=== PATIENT | male | born 1970 | race Caucasian/White ===

== ENCOUNTER 2016-11-20 20:52 | Emergency (ER) | payer SELFPAY ==
[~2016-11-20] VITALS: Ht 185.4 cm; Wt 104.0 kg
[~2016-11-20 20:52] MED LIST: IBUP600 PO; LORTA5 PO
[2016-11-20 20:57] VITALS: BP 160/100; PULSE 177; PULSE 77; RESP 22; TEMP 98.2; O2SAT 100
--- NOTE | 2016-11-20 21:13 | PD ---
HPI . fall from 8-10 ft roof Chief Complaint: Fall Time Seen by Provider: 21:00 Travel History International Travel<30 days: No Contact w/Intl Traveler<30days: No Traveled to known affect area: No History of Present Illness HPI 46-year-old male with no significant past medical history here via ambulance secondary fall from a roof approximately 8-10 feet high. Patient tells me that he was working on an addition on his house when he accidentally stepped on a part of the roof that was unstable and fell through. He reports that he initially fell to the ground hitting the back of his head and his left shoulder , which broke his fall. He thinks that he broke his clavicle. He reports 10 out of 10 pain in the left clavicle and approximately 8 out of 10 pain in the back of the head. There is no pain radiating elsewhere. He denies any pain in his neck, entire spine, hips and lower extremities. There was no LOC. He did not have any period of confusion, and this was witnessed by family. He did not experience any incontinence. In transport he was given 10 mg of morphine. Vital signs were stable. PFSH Past Surgical History Appendectomy: Yes Other Surgery: Yes (face) Social History Alcohol Use: No (social) Tobacco Use: Yes (5-6 cig per day) Substance Use: Yes (weed, social cocaine) Allergies-Medications (Allergen,Severity, Reaction): Coded Allergies: Amoxicillin (Verified Allergy, Severe, 09/14/15) N/V Contrast Media (Verified Allergy, Severe, 09/14/15) HIVES Percocet (Verified Allergy, Severe, 09/14/15) N/V Codeine (Verified Allergy, Intermediate, 11/20/16) Reported Meds & Prescriptions Reported Meds & Active Scripts Active Tramadol (Tramadol HCl) 50 Mg Tab 50 Mg PO Q6H PRN Review of Systems General / Constitutional: No: Fever Eyes: No: Visual changes HENT: No: Headaches Cardiovascular: No: Chest Pain or Discomfort Respiratory: No: Shortness of Breath Gastrointestinal: No: Abdominal Pain Genitourinary: No: Dysuria Musculoskeletal: Positive: Pain (left shoulder) Skin: Positive Other (laceration to the back of the scalp), No Rash Neurologic: Positive: Other (pain in the back of the hand), No: Weakness Psychiatric: No: Depression Endocrine: No: Polydipsia Hematologic/Lymphatic: No: Easy Bruising Physical Exam Narrative GENERAL: AAO x 3, mild distress, Well-nourished, well-developed patient. SKIN: Warm and dry. No visible rashes or bruising. Small laceration to the occiput of the scalp HEAD: Normocephalic and atraumatic. EYES: No scleral icterus. No injection or drainage. EOM intact, PERRLA ENT: No nasal drainage noted. Mucous membranes pink. Airway patent. NECK: Supple, trachea midline. No JVD. No spinal process tenderness. C-collar in place CARDIOVASCULAR: Regular rate and rhythm without murmurs, gallops, or rubs. RESPIRATORY: Breath sounds equal bilaterally. No accessory muscle use. No rhonchi or rales. GASTROINTESTINAL: Abdomen soft, non-tender, nondistended. No rebound or guarding. EXTREMITIES: No cyanosis or edema. Tenderness over the left clavicle and upper extremity, no pain in the right upper extremity or lower extremities bilaterally. BACK: Nontender without obvious deformity. No CVA tenderness. NEURO: CN II-12 intact, elevator tender strength normal b/l hand, LE 5/5, no focal deficits PSYCH: AAO x 3, normal affect. Data Data Last Documented VS Vital Signs Date Time Temp Pulse Resp B/P Pulse Ox O2 Delivery O2 Flow Rate FiO2 11/20/16 21:23 100 Room Air 11/20/16 20:57 98.2 77 22 160/100 Orders Complete Blood Count With Diff (11/20/16 21:13) Comprehensive Metabolic Panel (11/20/16 21:13) Prothrombin Time / Inr (Pt) (11/20/16 21:13) Act Partial Throm Time (Ptt) (11/20/16 21:13) Ct Brain W/O Iv Contrast(Rout) (11/20/16 21:13) Ecg Monitoring (11/20/16 21:13) Iv Access Insert/Monitor (11/20/16 21:13) Oximetry (11/20/16 21:13) Sodium Chloride 0.9% Flush (Ns Flush) (11/20/16 21:15) Chest, Single Ap (11/20/16 ) Ct Cerv Spine W/O Contrast (11/20/16 21:13) Morphine Inj (Morphine Inj) (11/20/16 21:30) Ondansetron Inj (Zofran Inj) (11/20/16 21:30) Sodium Chlor 0.9% 1000 Ml Inj (Ns 1000 M (11/20/16 21:30) Bywz-Xoh-Zogood (Booster) Inj (Boostrix (11/20/16 21:30) Clindamycin Inj (Cleocin Inj) (11/20/16 21:30) Shoulder, Limited(2vws) (11/20/16 21:13) Pelvis, Ap Only (Routine) (11/20/16 21:37) Lidocai-Epi 1%-1:100,000 Inj (Xylocaine- (11/20/16 22:45) Sling And Swathe (11/20/16 ) Mandatory Outpatient Referral (11/20/16 23:00) [facility] (11/20/16 ) Labs Laboratory Tests Test 11/20/16 21:26 White Blood Count 10.0 TH/MM3 Red Blood Count 4.66 MIL/MM3 Hemoglobin 13.9 GM/DL Hematocrit 40.9 % Mean Corpuscular Volume 87.7 FL Mean Corpuscular Hemoglobin 29.7 PG Mean Corpuscular Hemoglobin 33.9 % Concent Red Cell Distribution Width 12.2 % Platelet Count 242 TH/MM3 Mean Platelet Volume 7.8 FL Neutrophils (%) (Auto) 69.4 % Lymphocytes (%) (Auto) 21.7 % Monocytes (%) (Auto) 7.1 % Eosinophils (%) (Auto) 1.4 % Basophils (%) (Auto) 0.4 % Neutrophils # (Auto) 6.9 TH/MM3 Lymphocytes # (Auto) 2.2 TH/MM3 Monocytes # (Auto) 0.7 TH/MM3 Eosinophils # (Auto) 0.1 TH/MM3 Basophils # (Auto) 0.0 TH/MM3 CBC Comment DIFF FINAL Differential Comment Prothrombin Time 11.2 SEC Prothromb Time International 1.0 RATIO Ratio Activated Partial 27.8 SEC Thromboplast Time Sodium Level 139 MEQ/L Potassium Level 4.0 MEQ/L Chloride Level 107 MEQ/L Carbon Dioxide Level 26.4 MEQ/L Anion Gap 6 MEQ/L Blood Urea Nitrogen 20 MG/DL Creatinine 1.07 MG/DL Estimat Glomerular Filtration 75 ML/MIN Rate Random Glucose 85 MG/DL Calcium Level 8.0 MG/DL Total Bilirubin 0.4 MG/DL Aspartate Amino Transf 22 U/L (AST/SGOT) Alanine Aminotransferase 36 U/L (ALT/SGPT) Alkaline Phosphatase 78 U/L Total Protein 6.3 GM/DL Albumin 3.4 GM/DL MDM Medical Decision Making Medical Screen Exam Complete: Yes Emergency Medical Condition: Yes Medical Record Reviewed: Yes Differential Diagnosis Slip and fall, closed head injury, scalp laceration, C-spine fracture, clavicle fracture, AC joint separation Narrative Course 46-year-old male here with a fall from the roof of his house. On examination patient does appear to have possible deformity of the left clavicle/shoulder. He has a small laceration to the back of his scalp. There are no other obvious deformities or abnormalities on physical exam. IV access was obtained, labs and multiple images were taken. This was not a syncopal episode. This was a slip and fall from an unstable roof. Patient gave consent for repair of laceration to the back of his scalp. 5 yani were placed without incident. I recommend removal of yani in 7 days. We discussed signs of infections and when to return to the emergency department. I explain to the patient that he will need to see an orthopedist. Sling and swath were provided here in the emergency department. He was given a tetanus shot and also given a dose of clindamycin prophylactically. I will discharge him home with appropriate pain medications for pain control. He will also need follow-up with his primary care provider I have placed a mandatory outpatient referral for orthopedist. I explained to patient that someone will be contacting him regarding this. Patient verbalized understanding of instructions, questions were answered, and thanked me for their care. I advised them if their condition worsens, please return to the nearest emergency room for further care. Procedures Procedure Narrative LACERATION LOCATION: occiput of scalp LENGTH: 2.5 cm NUMBER OF STITCHES/YANI: 5 Yani REPAIR: The area of the laceration was prepped with Betadine and sterilely draped. The laceration was infiltrated with 1% lidocaine with epi. The wound was copiously irrigated and explored without evidence of foreign body, tendon injury or neurovascular injury. The wound was closed using yani. This was a single layer repair. A sterile dressing was applied. The patient was advised to keep the dressing clean and dry. Patient tolerated the procedure well. Diagnosis Primary Impression: Clavicle fracture Qualified Code: S42.002A - Closed displaced fracture of left clavicle, unspecified part of clavicle, initial encounter Additional Impressions: Scalp laceration Qualified Code: S01.01XA - Scalp laceration, initial encounter Fall Qualified Code: W19.XXXA - Fall, initial encounter Referrals: Orthopedist Patient Instructions: General Instructions Departure Forms: Tests/Procedures Additional Instructions: Please return to emergency department if your symptoms return or worsen. Follow up with your primary care provider. Take medications as prescribed. Wear the sling and swath as we have recommended. Follow-up with an orthopedist. You will need to have these yani, 5 to be exact removed in 7 days. You can return to the emergency department for this. Keep area clean and dry. Watch for signs of infection: fever, redness, swelling, warmth, pus or drainage , red streaks around the cut, and increased pain from the area. If you received a tetanus shot, you may experience tenderness at the injection site. This is normal. Med/Other Pt SpecificInfo: Prescription(s) given Scripts Tramadol 50 Mg Tab50 Mg PO Q6H PRN (PAIN) #15 TAB Ref 0 Prov:Nakia Valentin MD 11/20/16 Disposition: 01 DISCHARGE HOME Condition: Stable Joi Thorpe Nov 20, 2016 21:13
[2016-11-20] MEDS ORDERED: SODIUM CHLORIDE 0.9% FLUSH 10 ML FLUSH IVF PRN (21:15)
[2016-11-20 21:23] VITALS: O2SAT 100
[2016-11-20] MEDS ORDERED: DIPHTH/TETANUS/ACEL PERTUSSIS (BOOSTER) 0.5 ML VIAL/PFS IM ONE (21:30)
[2016-11-20] MEDS ORDERED: SODIUM CHLOR 0.9% 1000 ML INJ 1,000 ML IV ONE (21:30)
[2016-11-20] MEDS ORDERED: CLINDAMYCIN INJ 600 MG in SODIUM CHLORIDE 0.9% INJ 100 ML IV ONE (21:30)
[2016-11-20] MEDS ORDERED: MORPHINE SULFATE 4 MG/ML INJ IV PUSH ONE (21:30)
[2016-11-20] MEDS ORDERED: ONDANSETRON HCL 4 MG/2 ML VIAL IV PUSH ONE (21:30)
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
[2016-11-20 22:30] LABS: AUTOMATED NEUTROPHIL # 6.9 TH/MM3 (1.8-7.7); BASOPHIL % 0.4 % (0.0-2.0); EOSINOPHIL # 0.1 TH/MM3 (0-0.4); EOSINOPHIL % 1.4 % (0.0-4.0); HEMATOCRIT 40.9 % (39.0-51.0); HEMO FLAGS DIFF FINAL; LYMPH % 21.7 % (9.0-44.0); LYMPHOCYTE # 2.2 TH/MM3 (1.0-4.8); MEAN CELL VOLUME 87.7 FL (80.0-100.0); MEAN CORPUSCULAR HEMOGLOBIN 29.7 PG (27.0-34.0); MEAN CORPUSCULAR HGB CONC 33.9 % (32.0-36.0); MONO % 7.1 % (0.0-8.0); NEUT % 69.4 % (16.0-70.0); PLATELET COUNT 242 TH/MM3 (150-450); RED BLOOD COUNT 4.66 MIL/MM3 (4.50-5.90); RED CELL DISTRIBUTION WIDTH 12.2 % (11.6-17.2)
[2016-11-20 22:36] LABS: APTT (PATIENT) 27.8 SEC (24.3-30.1); PROTHROMBIN TIME - PATIENT 11.2 SEC (9.8-11.6)
[2016-11-20] MEDS ORDERED: LIDOCAINE 1%/EPINEPHrine 1:100,000 SOLN 20 ML VIAL INFIL ONE (22:45)
[2016-11-20 22:54] LABS: ALT (GPT) 36 U/L (12-78); ANION GAP 6 MEQ/L (5-15); AST (GOT) 22 U/L (15-37); BICARBONATE 26.4 MEQ/L (21.0-32.0); BLOOD UREA NITROGEN 20 MG/DL (7-18); CHLORIDE 107 MEQ/L (98-107); GLOMERULAR FILTRATION RATE 75 ML/MIN (>89); SODIUM (NA) 139 MEQ/L (136-145)
[2016-11-20] MEDS ORDERED: TRAM50TA PO (22:56)
[2016-11-20 22:57] LABS: ALKALINE PHOSPHATASE 78 U/L (45-117); TOTAL BILIRUBIN ADULT 0.4 MG/DL (0.2-1.0)
== END 2016-11-20 23:45 | disposition home or self-care (01) ==
LOC: NEPC 20:52
DX: S42.002A Fracture of unspecified part of left clavicle, initial encounter for closed fracture (principal); S01.01XA Laceration without foreign body of scalp, initial encounter; Z23 Encounter for immunization; Z72.0 Tobacco use; W13.2XXA Fall from, out of or through roof, initial encounter; Y93.H3 Activity, building and construction; Y92.009 Unspecified place in unspecified non-institutional (private) residence as the place of occurrence of the external cause
CPT/HCPCS: 12001; 70450; 71010; 72125; 72170; 73030; 80053; 85025; 85610; 85730; 90471; 90715; 96365; 96375; 99285; J2270; J2405; J7030; L0150